=== PATIENT | male | born 1925 | race Caucasian/White ===

== ENCOUNTER → 2016-04-25 | Day surgery (SDC) | payer OTHER ==
[~2016-04-25] MED LIST: ACETAMINOPHEN 1000 MG/100 ML VIAL IV ONE; BALANCED SALT SOLN OPHT IRRIG 15 ML BTL ONE; BUPIVACAINE/EPINEPHRINE 0.25% 50 ML VIAL ONE; LACTATED RINGER'S 1000 ML INJ 1,000 ML ONE; LIDOCAINE 1%/EPINEPHrine 1:100,000 SOLN 20 ML VIAL ONE; NEOMYCIN/POLYMYXIN/BACITRACIN OINT 15 GM TUBE ONE; PROPOFOL 200 MG/20 ML AMP IV ONE; ceFAZolin INJ 1,000 MG VIAL ONE
--- NOTE | 2016-04-25 14:53 | TN ---
cc: CHEMA BROWN M.D. DATE OF SURGERY: 04/25/2016 PREOPERATIVE DIAGNOSIS 1. 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 2. 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 POSTOPERATIVE DIAGNOSIS 1. 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 2. 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 PROCEDURE 1. Wide local excision of the right chin, resulting in a defect of 4 x 3 cm. This required a fasciocutaneous flap for a secondary defect of 7 x 4 cm. 2. The neck was widely excised, 5 x 3 cm primary defect. The secondary defect is 7 x 4 cm tissue rearrangement reconstruction. SURGEON Chema Brown MD, FACS [employer] Livia Raymond MS III ANESTHESIA LMA general. I also utilized approximately 60 cc of 1% lidocaine and epinephrine mixed with 0.25% Marcaine. ESTIMATED BLOOD LOSS Minimal. DETAILS OF PROCEDURE A proper consent was obtained. He was taken to the operating room where after achieved a level of LMA anesthesia. The area was properly prepped and draped utilizing Betadine solution and sterile draping applied. Local anesthesia was infiltrated. An incision was properly carried out of the right cheek area with at least a half centimeter to a centimeter margin, and sent to pathology for analysis. The defect is 4 x 3 cm. A fasciocutaneous flap inferiorly based was properly elevated from the nasolabial fold and rotated into the defect and sutured utilizing 3-0 Monocryl suture and fast-absorbing gut. The donor site was closed in the usual fashion utilizing suture material. The secondary defect is 7 x 4 cm. The lesion located in the right neck was properly excised and sent to pathology for analysis with a primary defect of 5 x 3 cm. Widely undermined in the platysmal level for a secondary defect of 7 x 4 cm. It was properly closed utilizing the same suture material. Dermabond was applied on both areas. Good viability of the tissue was noted at the end of the case. The patient was awakened, extubated in the operating room, and transferred back to post-anesthesia care unit in stable condition. No complications were appreciated. The patient tolerated the procedure fairly well. MD CHAKA Ang/HEBER /2:18 PM /2:39 PM [email or web address]
== END | disposition home or self-care (01) ==
LOC: ESDC 10:27
PROVIDERS: ATTEND Plastic Surgery
DX: C76.0 Malignant neoplasm of head, face and neck (principal); D04.4 Carcinoma in situ of skin of scalp and neck
CPT/HCPCS: 00300; 14041; 15732; 88305; J0131; J0690; J3010; J7120